=== PATIENT | female | born 1970 | race Caucasian/White ===

== ENCOUNTER 2019-11-01 07:59 | Day surgery (SDC) | payer OTHER ==
[~2019-11-01] VITALS: Ht 157.5 cm; Wt 98.0 kg
[2019-11-01] MEDS ORDERED: LR 1,000 ML IV.SOLN IV ONE (08:00)
[2019-11-01] MEDS ORDERED: LIDOCAINE 2%, 20 ML MDV INJ ONE (08:00)
[2019-11-01] MEDS ORDERED: BUPIVACAINE /PF 0.25% 30 ML VIAL INJ ONE (08:00)
[2019-11-01] MEDS ORDERED: methylPREDNISolone ACETATE 40 MG/ML IM ONE (08:00)
[2019-11-01] MEDS ORDERED: IOPAMIDOL 50 ML VIAL IV ONE (08:00)
[2019-11-01] MEDS ORDERED: DIPHENHYDRAMINE INJ 50 MG/ML VIAL ONE (09:05)
[2019-11-01] MEDS ORDERED: MIDAZOLAM HCL 5 MG/5 ML VIAL ONE (09:05)
[2019-11-01 09:27] LABS: HCG,QUAL RESULT NEGATIVE (NEGATIVE)
[2019-11-01] MEDS ORDERED: MIDAZOLAM HCL 5 MG/5 ML VIAL IVP ONE (10:06)
[2019-11-01 10:30] VITALS: BP_SYST 125
== END 2019-11-01 11:25 | disposition home or self-care (01) ==
LOC: SMU 07:59 → SDS 07:59
PROVIDERS: ATTEND Internal Medicine
DX: M47.26 Other spondylosis with radiculopathy, lumbar region (principal); M47.816 Spondylosis without myelopathy or radiculopathy, lumbar region; I10 Essential (primary) hypertension
CPT/HCPCS: 64493; 77002; 82962; 84703; J1030; J2001; J2250; J3490; J7120; Q9967; 76000; J1200